=== PATIENT | male | born 1955 | race Caucasian/White ===

== ENCOUNTER 2024-02-03 09:30 | Emergency (ER) | payer MEDICARE, SELFPAY ==
[2024-02-03 09:30] VITALS: BP 145/71; PULSE 56; RESP 16; TEMP 36.6; O2SAT 98; BMI 24.8
--- NOTE | 2024-02-03 09:44 | [facility].EDGENADL ---
Discharge Plan Disposition Chief Complaint: Recheck/Abnormal Lab/Rx Referrals Follow up/Referrals: Nay Adams DO [Primary Care Provider] - See instructions Activity Restrictions/Add. Instructions Additional Instructions/Restrictions: At this time it was felt you are safe to be discharged home. If new or worsening symptoms please do not hesitate to return the emergency department. Clinical Impressions Clinical Impression: Encounter for medical assessment Discharge ED Provider: Ren Morales General Adult HPI General Chief complaint: Recheck/Abnormal Lab/Rx Stated complaint: abnormal labs Time Seen by Provider: 02/03/24 09:32 History of Present Illness HPI narrative: Patient is a 68-year-old male with past medical history of hypertension on amlodipine who presents emergency department for evaluation of high potassium. Patient got routine labs drawn for his physical yesterday which his potassium resulted at 6 and he was instructed to present to the emergency room for continued evaluation. 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 He has some cramping in his lower extremities which is not abnormal for him. His heart rate is slow at baseline. He has no acute complaints. Related Data Allergies Allergy/AdvReac Type Severity Reaction Status Date / Time No Known Allergies Allergy Verified 02/03/24 09:54 [facility] Disclaimer: The information contained in this section may have been updated after the patient was seen, as this information can be updated by other users. Social History Smoking Status: Never smoker alcohol intake: never current occupational status: other Travel in the last 8 weeks: None ROS Obtained: Yes Systems reviewed as appropriate & no additional complaints except as documented Physical Exam General General appearance: alert and in no apparent distress Head Head exam: atraumatic and normocephalic Eye Eye exam: Present PERRL ENT ENT exam: Present mucous membranes moist Neck Neck exam: Present normal inspection Chest Chest inspection: Present normal inspection and symmetric chest wall rise Respiratory Respiratory exam: Absent respiratory distress Cardiovascular Cardiovascular exam: Present regular rate and normal rhythm Abdominal Exam Abdominal exam: Present soft Extremities Exam Extremities exam: Present normal inspection Neurological Exam Neurological exam: Present alert and CN II-XII intact; Absent motor sensory deficit Psychiatric Psychiatric exam: Present normal affect Skin Skin exam: Present warm and dry Medical Decision Making Abimael Inquiry Pt receiving controlled substance: No Vital Signs: 02/03/24 09:30 Temperature 97.8 F Temperature Source Oral Pulse Rate [Left] 56 L Respiratory Rate 16 Blood Pressure [Left Arm] 145/71 H Blood Pressure Mean [Left Arm] 95 02 Sat by Pulse Oximetry 98 Oxygen Delivery Method Room Air Lab Data Lab Results 02/03/24 09:40: WBC 4.8, RBC 4.82, Hgb 14.5, Hct 42.6, MCV 88.5, MCH 30.1, MCHC 34.0, RDW 13.9, Plt Count 273, MPV 7.9, Neut % (Auto) 59.2, Lymph % (Auto) 24.8, [place] % (Auto) 10.8 H, Eos % (Auto) 3.9, Baso % (Auto) 1.3, Neut # (Auto) 2.8, Lymph # (Auto) 1.2, [place] # (Auto) 0.5, Eos # (Auto) 0.2, Baso # (Auto) 0.1, Sodium 138, Potassium 4.3, Chloride 105, Carbon Dioxide 30, Anion Gap 7.3, BUN 15, Creatinine 1.00, Estimated Creat Clear 80, Estimated GFR 75, Est GFR ( Amer) 90, Glucose 95, Calcium 9.3, Total Bilirubin 1.1, AST 50, ALT 41, Alkaline Phosphatase 70, Total Protein 7.4, Albumin 4.5, Globulin 2.9, Albumin/Globulin Ratio 1.6 02/03/24 09:49: Urine Color Yellow, Urine Appearance Clear, Urine pH 6.0, Ur Specific [place] <= 1.005, Urine Protein Negative, Urine Glucose (UA) Negative, Urine Ketones Negative, Urine Blood Negative, Urine Nitrate Negative, Urine Bilirubin Negative, Urine Urobilinogen 0.2, Ur Leukocyte Esterase Negative 02/03/24 09:40 02/03/24 09:40 Orders (Tests/Meds): ED MEDICATIONS Generic Name Dose Route Start Last Admin Trade Name Freq PRN Reason Stop Dose Admin Sodium Chloride 1,000 mls @ 999 mls/hr 02/03/24 09:43 02/03/24 09:54 Sod Chlor 0.9% 1000ml Bag IV 02/03/24 10:43 999 mls/hr .Q1H1M ONE Administration ORDERS Category Date Time Status CBC w/Auto Diff [Complete Blood Count Auto Diff] Stat Lab 02/03/24 09:40 Completed CK [Creatine Kinase] Stat Lab 02/03/24 10:14 Ordered CMP [Comprehensive Metabolic Panel] Stat Lab 02/03/24 09:40 Completed UA [Urinalysis and Microscopic] Stat Lab 02/03/24 09:49 Results EKG Request [ECG Request] Stat Y 02/03/24 09:43 Ordered ECG Data Tracing #1: Independently interpreted by me rate is 52, rhythm is regular, axis is normal, sinus bradycardia, no ST elevation in anatomical contiguous leads, QTc 425, no high degree AV block. Medical Decision Narrative: In summary patient is a previous healthy 68-year-old male with past medical history described above who presents emergency department for evaluation of laboratory abnormalities. Patient is hemodynamically stable nontoxic-appearing upon arrival, afebrile, heart rate in the 50s which is his baseline. Differential includes hyperkalemia that is idiopathic, erroneous secondary to hemolysis, rhabdomyolysis, among others. Workup will be conducted with hematologic labs, urinalysis, EKG. Initial interventions include crystalloid bolus. Initial workup reviewed by me, hematologic labs are nonactionable. Specifically patient's potassium is 4.3. Urinalysis has no proteinuria. I suspect that the high potassium was erroneous. Upon repeat evaluation patient continued to be well-appearing and is appropriate for discharge at this time. Critical Care Critical Care Time Critical Care Time: No
--- NOTE | 2024-02-03 09:52 | ECG_ITS ---
APPROVED REPORT Exam: Resting ECG HR:52 bpm ECG Measurements Heart Rate 52 AXES MT 221 P 76 QRSd 93 QRS 57 QT 444 T 62 QTc 425 Conclusion SINUS BRADYCARDIA WITH FIRST DEGREE AV BLOCK ABNORMAL ECG Electronically signed by : KAYLIE FRIAS, 02/03/2024 15:22:39
[2024-02-03 09:54] LABS: Microscopic, Urine URINE MICROSCOPIC (MICROSCOPIC)
[2024-02-03 09:54] LABS: Chloride 105 mmol/L (98-107); Potassium 4.3 mmoL/L (3.5-5.1); Sodium 138 mmol/L (136-145)
[2024-02-03] MEDS: 0.9 % SODIUM CHLORIDE 1000ML 1,000 ML 999 ML IV (09:54)
[2024-02-03 09:55] LABS: Basophils # 0.1 K/mm3 (0-0.2); Basophils % 1.3 % (0.1-2.0); Eosinophils # 0.2 K/mm3 (0.0-0.4); Eosinophils % 3.9 % (0.1-12.0); Hematocrit 42.6 % (42.0-52.0); Hemoglobin 14.5 g/dL (14.1-18.0); Lymphocytes # 1.2 K/mm3 (0.7-4.5); Lymphocytes % 24.8 % (10-50); Mean Corpuscular Hemoglobin 30.1 pg (27.0-31.2); Mean Corpuscular Volume 88.5 fl (80-94); Mean Platelet Volume 7.9 fl (7.4-10.4); Monocytes # 0.5 K/mm3 (0.1-1.0); Monocytes % 10.8 % (1.7-9.3); Neutrophils # 2.8 K/mm3 (1.8-7.8); Neutrophils % 59.2 % (37.0-80.0); Platelet Count 273 K/mm3 (142-424); Red Blood Count 4.82 M/mm3 (4.60-6.20); Red Cell Distribution Width 13.9 % (11.5-17.5); White Blood Count 4.8 K/mm3 (4.8-10.8)
[2024-02-03 09:57] LABS: Alanine Aminotransferase 41 U/L (12-78); Albumin Level 4.5 g/dl (3.5-5.0); Albumin/Globulin Ratio 1.6 (1.1-1.8); Alkaline Phosphatase 70 U/L (38-126); Anion Gap 7.3 mEq/L (5-15); Aspartate Amino Transferase 50 U/L (17-59); Bilirubin,Total 1.1 mg/dl (0.2-1.3); Blood Urea Nitrogen 15 mg/dl (9-20); Carbon Dioxide 30 mmol/L (22.0-30.0); Creatinine Clearance Estimated 80 mL/min (50-200); Estimated Glomerular Filt Rate 75 ml/min (>60); GFR (African American) 90 ML/MIN (>60); Globulin 2.9 g/dL (1.3-3.2); Total Protein,Serum 7.4 g/dl (6.3-8.2)
[2024-02-03 09:58] LABS: Calcium 9.3 mg/dl (8.4-10.2); Glucose 95 mg/dl (74-100)
[2024-02-03 10:02] LABS: Appearance,Urine CLEAR (Clear); Bilirubin,Urine Negative (Negative); Blood, Urine Negative (Negative); Color,Urine YELLOW (Yellow); Glucose,Urine (UA) Negative (Negative); Ketones,Urine Negative (Negative); Leukocyte Esterase,Urine Negative (Negative); Nitrate,Urine Negative (Negative); Protein,Urine Negative (Negative); Specific Gravity, Urine <= 1.005 (1.005-1.030); Urobilinogen,Urine 0.2 EU/dl (0.2)
--- NOTE | 2024-02-03 10:15 | PC.NURSE ---
dr dial at bedside to update pt and family
[2024-02-03 10:21] VITALS: BP 128/74; PULSE 54; RESP 16; TEMP 36.9; O2SAT 100
[2024-02-03 10:24] LABS: Creatine Kinase 370 U/L (55-170)
== END 2024-02-03 10:25 | disposition home or self-care (01) ==
PROVIDERS: Emergency Provider Emergency Medicine; PCP Internal Medicine
DX: I44.0 Atrioventricular block, first degree (principal); R00.1 Bradycardia, unspecified; I10 Essential (primary) hypertension
CPT/HCPCS: 80053; 81001; 82550; 85025; 93005; 96360; 99284